=== PATIENT | female | born 1950 | race Caucasian/White ===

== ENCOUNTER 2017-02-25 12:06 | Observation (INO) ==
[2017-02-25 12:54] VITALS: BMI 32.4
--- NOTE | 2017-02-25 13:34 | XRay Report ---
Indication: chest pain XR chest 1V: Comparison: 06/06/2012 Technique: Single portable upright chest Findings: Patient demonstrates normal heart, mediastinum and central vascularity. Lungs are clear. No acute bony findings are seen. Impression: Unremarkable exam of the chest. .
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
[2017-02-25] MEDS: NITROGLYCERIN 2% OINTMENT 1gm PACKET TP SCH ×2 (15:30→22:07)
[2017-02-25] MEDS ORDERED: ENOXAPARIN 100 MG/ML INJECTION SQ SCH (21:00)
[2017-02-25] MEDS: ATORVASTATIN 40 MG TABLET PO SCH (22:06)
[2017-02-25] MEDS: NIACIN ER 500 MG TABLET PO SCH (22:06)
[2017-02-26] MEDS: NITROGLYCERIN 2% OINTMENT 1gm PACKET TP SCH ×5 (03:55→20:30)
[2017-02-26] MEDS ORDERED: PANTOPRAZOLE 40 MG TABLET PO SCH (06:30)
--- NOTE | 2017-02-26 07:57 | History and Physical ---
HPI The patient is a 66-year-old female who presented today to the clinic--she just walked into the clinic today with chief complaint of chest pain. Her chest pain began on , roughly about 4 days ago, and then it got better. Several minutes later had another episode. Then Saturday, the next day, the chest pain had gone away until yesterday evening when she had another episode of chest pain which she described as chest pressure, kind of grabbing pressure on the left upper sternal border with radiation to the left neck and the left arm. This was associated with some dizziness and sweating. That got relieved overnight and this morning again she has a sensation of chest discomfort as well in the same location. She had a similar episode about 10 years ago requiring hospitalization. Diagnostic testing at that time were unremarkable. Patient was given sublingual nitro as well as aspirin at the office and chest pain almost resolved. Her EKG shows nonspecific ST-T wave abnormality in the anterolateral lead. PAST MEDICAL HISTORY 1. Peptic ulcer disease. 2. Migraine headache. 3. Dyslipidemia. 4. Hypertension. 5. Seasonal allergies. CURRENT MEDICATIONS 1. Aspirin 325 mg one tablet daily. 2. Claritin 10 mg one tablet daily. 3. Niacin 1,000 mg q. day. 4. Propranolol 80 mg one tablet daily. 5. Prozac 40 mg one tablet daily. 6. Zantac 150 mg one tablet p.o. b.i.d. ALLERGIES Penicillin. FAMILY HISTORY Diabetes, hypertension, COPD, uterine cancer. SOCIAL HISTORY Patient never smoked or drank alcohol. She has two adult children and she is . REVIEW OF SYSTEMS Denies any TIA or CVA symptoms. No blurry vision. No diplopia. No palpitations. No difficulty breathing. No coughing blood. No abdominal pain. No nausea. No vomiting. No diarrhea. No TIA or CVA symptoms. No symptoms of urinary tract infection. The rest of review of systems as in HPI. PHYSICAL EXAMINATION GENERAL: Patient looks comfortable although she is anxious. HEENT: Unremarkable. NECK: Supple. No JVD. LUNGS: Clear to auscultation bilaterally. CARDIOVASCULAR: Regular rate and rhythm. ABDOMEN: Soft, nontender. EXTREMITIES: No cyanosis, clubbing or edema. NEURO EXAM: Grossly intact. ASSESSMENT 1. Acute chest pain (angina). 2. Dizziness. 3. History of dyslipidemia. 4. Hypertension by history. 5. Migraine headache. 6. Peptic ulcer disease. PLAN Admit patient to [facility] under the care of Dr. Dewayne Chavez on observation telemetry status. Patient will be started on aspirin, nitro paste-- even sublingual?, Lovenox 1 mg/kg b.i.d. Will have Dr. Colin consulted, Therapeutic Massage Technician. Will continue patient on home medication including Niacin. Will add Lipitor to her regimen until we know her cholesterol level tomorrow. Chest x-ray is pending. Lab including CBC, CMP, lipids, TSH, UA and sed rate are all pending, as well as a chest x-ray. CODE STATUS Patient is a FULL CODE. MTDD
[2017-02-26] MEDS ORDERED: REGADENOSON 0.4 MG/5 ML INJECTION IVP ONE (08:30)
[2017-02-26] MEDS ORDERED: SALINE FLUSH 10ml SYRINGE ONE ×2 (08:30→08:42)
[2017-02-26] MEDS: PROPANOLOL 80 MG PO SCH ×2 (08:48→10:50)
[2017-02-26] MEDS ORDERED: ASPIRIN 325 MG TABLET PO SCH ×2 (09:00→21:00)
[2017-02-26] MEDS ORDERED: FLUoxetine 20 MG CAPSULE PO SCH (09:00)
[2017-02-26] MEDS: ACETAMINOPHEN 325 MG TABLET PO PRN ×2 (09:09→19:44)
[2017-02-26] MEDS ORDERED: PNEUMOCOCCAL 13 VACCINE 0.5ml INJECTION IM ONE (13:51)
[2017-02-26] MEDS ORDERED: INFLUENZA VAC High Dose 2017-18 (Fluzone HD*) (>=65yo) 0.5ml IM ONE (13:51)
[2017-02-26] MEDS ORDERED: INFLUENZA VAC. INJ. ADMIN CHARGE INJ ONE (15:13)
[2017-02-26] MEDS ORDERED: PNEUMOCOCCAL VAC ADMIN CHARGE INJ ONE (15:13)
[2017-02-26 15:28] VITALS: BP 125/65; RESP 18; TEMP 95.6; O2SAT 96
--- NOTE | 2017-02-26 18:24 | Cardiology Progress Note ---
Subjective Interval history: pt denies any chest tightness or discomfort throughout the night and currently. denies soa, lightheadedness, dizziness, difficulty swallowing. she states she feels fine. she completed her nuclear scan without complications which came back unremarkable- see report. <Erin Trejo R 02/26/17 18:27> Exam Vital signs: Temperature 95.6 F L 02/26/17 15:27 Pulse Rate 58 L 02/26/17 15:27 Respiratory Rate 18 02/26/17 15:27 Blood Pressure 125/65 02/26/17 15:27 Pulse Oximetry 96 02/26/17 15:27 <Tamra Coffey Alen - 02/26/17 21:13> Temperature 95.6 F L 02/26/17 15:27 Pulse Rate 58 L 02/26/17 15:27 Respiratory Rate 18 02/26/17 15:27 Blood Pressure 125/65 02/26/17 15:27 Pulse Oximetry 96 02/26/17 15:27 <Erin Trejo 02/26/17 18:27> - Constitutional no acute distress, well nourished, cooperative <Erin Trejo 02/26/17 18 :27> - Routine HEENT Exam Head: Present: normocephalic, atraumatic <Erin Trejo 02/26/17 18:27> ENT: Present: mucous membranes moist <Erin Trejo 02/26/17 18:27> - Routine Neck Exam Absent: JVD, carotid bruit <Erin Trejo 02/26/17 18:27> - Routine Respiratory Exam Present: CTA bilaterally. Absent: accessory muscle use <Erin Trejo 18:27> - Routine Cardiovascular Exam Present: S4, bradycardia <Erin Trejo 02/26/17 18:27> - Routine Abdominal Exam Present: soft, normoactive bowel sounds, non tender <Erin Trejo 18:27> - Routine Skin Exam Present: intact <Erin Trejo 02/26/17 18:27> - Routine Neurological Exam Present: alert, oriented X3, CN II-XII intact (grossly), normal speech. Absent : motor deficit, facial asymmetry <Erin Trejo - 02/26/17 18:27> - Routine Psychiatric Exam Present: normal affect, normal thought process <Erin Trejo 02/26/17 18 :27> Assessment and Plan - Assessment and Plan (1) Chest pain Current visit: Yes Status: Acute nuclear scan is negative, repeat troponin is negative, pt is asymptomatic and has no acute or active cardiac issues. clear to d/c from cardiac standpoint. f/u with PCP happy to continue care if additional cardiac problems occur or persist. (2) Abnormal EKG Current visit: Yes Status: Acute (3) Hypertension Current visit: Yes Status: Acute (4) Hyperlipidemia Current visit: Yes Status: Acute (5) Anxiety Current visit: Yes Status: Acute (6) Depression Current visit: Yes Status: Acute <Erin Trejo - 02/26/17 18:21> (1) Chest pain Current visit: Yes Status: Acute (2) Hypertension Current visit: Yes Status: Acute (3) Abnormal EKG Current visit: Yes Status: Acute (4) Hyperlipidemia Current visit: Yes Status: Acute (5) Anxiety Current visit: Yes Status: Acute (6) Depression Current visit: Yes Status: Acute <Tamra Coffey 02/26/17 21:13> Hospital Course Summary Disclaimer: The visit summary below is not to be considered part of the above Progress Note. <Tamra Coffey 02/26/17 21:13> The visit summary below is not to be considered part of the above Progress Note. <Erin Trejo 02/26/17 18:27> Hospital Course: 02/26/17 21:12 duy nagy personally interviewed and examined pt and agree with above. <Tamra Coffey 02/26/17 21:13> 02/26/17 18:25 dr. coffey personally examined and interviewed patient and formulated plan of care. <Erin Trejo 02/26/17 18:27>
[2017-02-26] MEDS: NIACIN ER 500 MG TABLET PO SCH ×2 (19:46→20:30)
[2017-02-26] MEDS: ATORVASTATIN 40 MG TABLET PO SCH ×2 (19:46→20:30)
[2017-02-26] MEDS ORDERED: LORATADINE 10 MG TABLET PO PRN (20:37)
[2017-02-26] MEDS ORDERED: RANITIDINE 150 MG TABLET PO SCH (21:00)
[2017-02-26] MEDS ORDERED: NIACIN 500 MG PO SCH (21:00)
[2017-02-26 23:49] VITALS: PULSE 66
[2017-02-27] MEDS ORDERED: NON-FORMULARY MEDICATION 1 EACH EACH (Fluoxetine Hcl [Prozac] 40 MG) PO SCH (09:00)
[2017-02-27] MEDS ORDERED: PROPRANOLOL HCL 80 MG PO SCH (09:00)
--- NOTE | 2017-02-27 12:00 | Pharmacologic Nuc Stress Test ---
PHARMACOLOGICAL STRESS NUCLEAR SCAN DATE 02/26/2017 INDICATION 66-year-old female who presented with nitroglycerin-responsive chest tightness, brought on and worsened by emotional but not physical stress. She has features suggestive of esophageal spasm. She did have however a Q-wave abnormality in precordial lead. She was counseled on the risks and benefits of different diagnostic cardiac procedures and she elected to proceed with a stress nuclear scan. Her repeat Troponin remained normal. PROCEDURE The patient was injected with Technetium-99m Myoview dose of 13.1 mEq. She underwent Cherri-walk protocol due to her inability to fully exercise. She did experience a transient chest tightness "1.5/10" associated with a shortness of breath following Lexiscan injection. After about two minutes, it spontaneously resolved. Rest blood pressure was 126/90, heart rate of 65 beats per minute. Blood pressure modestly dropped to 113/77, heart rate went up to 105 beats per minute. Rest EKG showed sinus rhythm, nonspecific T-wave abnormality in precordial lead. During low level exercise/pharmacological stress, there was no ST depression or elevation diagnostic of ischemia. No arrhythmia. Stress and rest perfusion images were reviewed. Slightly reduced uptake in the anterior septal wall about equal between stress and rest images. There was no significant perfusion defect identified. Gated images show normal wall motion, normal contractility, normal LV ejection fraction measured at 64% on stress images and 76% on rest images. Myocardial perfusion scan is considered normal. Rotatogram is not show any significant abnormal extracardiac uptake. Significant breast shadow is identified on both sets of images. IMPRESSION 1. Inability to fully exercise. 2. Pharmacological/low level exercise stress nuclear scan clinically associated with transient chest tightness associated with shortness of breath. This is nonspecific following Lexiscan injection. 3. Electrically no low level exercise/pharmacological agent-induced ST depression or elevation or arrhythmia. 4. Scintigraphically normal myocardial perfusion scan. 5. Normal LV ejection fraction. DISCUSSION AND PLAN It would be reasonable for patient to be treated either with sublingual Levsin or sublingual nitroglycerin although Levsin is more specific for esophageal spasm and may be preferable, if the drug is available and affordable. If the patient continues to have chest pain, I would be happy to see her again in followup at Dr. Chavez's request. POLY
== END 2017-02-26 21:10 | disposition home or self-care (01) ==
LOC: MED
PROVIDERS: ADMIT Family Medicine; ATTEND Family Medicine